=== PATIENT | male | born 2005 | race Caucasian/White ===

== ENCOUNTER 2025-06-10 01:36 | Emergency (ER) | payer BC, SELFPAY ==
[2025-06-10 01:36] VITALS: BMI 22.9
--- NOTE | 2025-06-10 01:43 | EDNOTE_ITS ---
ED Allergic Reaction RME/HPI General Chief complaint: Allergic Reaction Stated complaint: ALLERGIC REACTION Time Seen by Provider: 06/10/25 01:51 Arrival date/time: 06/10/25 01:36 RME / HPI RME / HPI narrative: This section includes all my notes and documentations, including HPI, PE, and ED course. Miguel Hudson MD HPI: 20 y/o male presents with severe red rash and itching s/p smoking marijuana x approximately 30 minutes ago. Denies any known allergies, new foods, or treatments. No throat tightness. No shortness of breath. No other complaints. ROS: All negative except as documented in HPI. Physical Exam: General: Alert and oriented. No acute distress when remaining still. Eyes: Conjunctivae and lids clear. ENT: No nasal congestion. Neck: Supple. Heart: RRR. Lungs: No respiratory distress. Good air movement. No rhonchi, wheezing, rales. Abdomen: Soft and nontender. Skin: Warm and dry. Diffuse and severe hives noted. Neuro: Alert and oriented X 3. At this point, diagnoses include: Allergic reaction. Treatment here included: IVF, Benadryl 50 mg, Pepcid 20 mg, Toradol 30 mg, SoluMedrol 125 mg. Significant improvement noted. Recommended outpatient care. Based on my best medical judgment, made decision no further evaluation or treatment indicated at this time. Patient understands and agrees to the discharge instructions customized and printed, see below. Discharge instructions from Dr. Hudson: 1. You were treated today for allergic reaction. 2. To help prevent the reaction going into your airways and your throat, take prednisone as prescribed. 3. And take Benadryl 50 mg every 6-8 hours today and tomorrow then as needed. 4. Increase oral fluid and maintain clear urine.? If dark or yellow, increase oral fluid.? This will help eliminate any allergens in your blood system. 5. Avoid unknown substances. 6. See your private doctor on 06/11/2025 for recheck. Ask for a referral to see an highway maintenance supervisor so you can be tested to know what to avoid in the future. 7. Seek immediate medical care with worsening, breathing difficulty, or with any concerns. 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 ED Exam Narrative Physical exam: Refer to HPI Course Quality Measures none Orders Category Date Time Status Saline [Insert IV] NOW Care 06/10/25 01:41 Active DiphenhydrAMINE INJ [Benadryl Inj] Med 06/10/25 01:41 Discontinued 50 mg IVP X1 STA Famotidine Inj [Pepcid Inj] Med 06/10/25 01:41 Discontinued 20 mg IVP X1 ONE Ketorolac Inj [Toradol Inj] Med 06/10/25 01:41 Discontinued 30 mg IVP X1 ONE MethylPREDNISolone.* [SoluMEDROL Inj] Med 06/10/25 01:41 Discontinued 125 mg IVP X1 ONE Sodium Chloride 0.9% 1000 ml [Ns] 1,000 ml Med 06/10/25 01:41 Discontinued IV 999 mls/hr Vital Signs Vital signs: Vital Signs Temperature 98 F 06/10/25 01:46 Pulse Rate 67 06/10/25 01:46 Respiratory Rate 18 06/10/25 01:46 Blood Pressure 138/79 H 06/10/25 01:46 Pulse Oximetry (%) 98 06/10/25 01:46 Oxygen Delivery Method Room Air 06/10/25 01:46 Allergic Reaction MDM Narrative MDM Narrative:: Scribe Attestation: Samantha Joyce am scribing for and in the presence of Dr. Hudson. Provider Notation: Although this document has been carefully reviewed, there may still be some phonetic and other typographical errors.? These errors are purely grammatical due to imperfections in the software program and should not be construed in any way to? compromise the substance of the patient's medical care during this visit. 20 y/o male presents with severe red rash and itching s/p smoking marijuana x approximately 30 minutes ago. Denies any known allergies, new foods, or treatments. No throat tightness. No shortness of breath. No other complaints. Patient data External records reviewed:: [facility] previous records (No prior ED records available for review.) Clinical information provided by:: patient Social determinants that could affect healthcare access:: substance use (Marijuana) Patient has the following chronic illnesses:: None reported How is presenting disease/condition affected by chronic disease/condition?: no chronic disease Evaluation data The following diagnostics were reviewed and interpreted by me:: other (specify) (N/A) Lab and/or radiology exams considered but not ordered:: None Interpretation Summary: N/A Medications / Prescriptions Medications or Prescriptions considered but not ordered:: None Medication administrations:: Medication Administration History Discontinued Medications Diphenhydramine HCl (Diphenhydramine Inj 50 Mg/Ml Vial) 50 mg IVP X1 STA Stop: 06/10/25 01:42 Last Admin: 06/10/25 01:58 Dose: 50 mg Documented By: CVL Famotidine (Famotidine Inj 10 Mg/Ml Vial 2 Ml) 20 mg IVP X1 ONE Stop: 06/10/25 01:42 Last Admin: 06/10/25 02:02 Dose: 20 mg Documented By: CVL Sodium Chloride (Ns) 1,000 mls @ 999 mls/hr IV .Q1H1M ONE Stop: 06/10/25 02:41 Last Infusion: 06/10/25 02:51 Dose: Infused Documented By: Admin: 06/10/25 02:00 Dose: 999 mls/hr Documented By: CVL Ketorolac Tromethamine (Ketorolac Inj 30 Mg/Ml Vial) 30 mg IVP X1 ONE Stop: 06/10/25 01:42 Last Admin: 06/10/25 02:05 Dose: 30 mg Documented By: CVL Methylprednisolone Sodium Succinate (Methylprednisolone Sod Succ 62.5 Mg/Ml 2ml Vial) 125 mg IVP X1 ONE Stop: 06/10/25 01:42 Last Admin: 06/10/25 02:02 Dose: 125 mg Documented By: CVL IVF, Benadryl 50 mg, Pepcid 20 mg, Toradol 30 mg, SoluMedrol 125 mg. Consultations Consultation(s) initiated? (list below): No Diagnosis Differential Diagnosis allergic reaction: anaphylaxis, allergic reaction, angioedema, contact dermatitis, adverse reaction to drug, viral enanthem and urticaria Most likely diagnosis given after review of the tests above:: Allergic reaction Admission Indicated Admission indicated?: not indicated Explain why admission is indicated or not indicated:: With significant improvement and no condition needing emergent intervention, there was no indication for admission. Admission Request Was there a request for admission?: No Disposition Plan Disposition Plan: Discharge Discharge Attestation Discharge Attestation: The patient and all family members were given an opportunity to ask questions and understood the discharge instructions. Discharge instructions specifically effects, indications for sooner follow up or return to the emergency department, and the expected course of current diagnosis. Patient condition: Stable Discharge Plan Plan Patient Disposition: HOME (Self Care) Prescriptions/Referrals Prescriptions/Med Rec: New prednisone 20 mg tablet 20 mg PO BID 2 Days Qty: 4 0RF Taper: Prednisone Taper 20 mg DAILY for 2 Days and 0 Hour 10 mg DAILY for 2 Days and 0 Hour 5 mg DAILY for 7 Days and 0 Hour Problem List Clinical Impression: Allergic reaction Patient/Caregiver Discharge Instructions Discharge Activity: activity as tolerated Education Materials: ED Allerg React Other General Ch Additional Instructions: Discharge instructions from Dr. Hudson: 1. You were treated today for allergic reaction. 2. To help prevent the reaction going into your airways and your throat, take prednisone as prescribed. 3. And take Benadryl 50 mg every 6-8 hours today and tomorrow then as needed. 4. Increase oral fluid and maintain clear urine.? If dark or yellow, increase oral fluid.? This will help eliminate any allergens in your blood system. 5. Avoid unknown substances. 6. See your private doctor on 06/11/2025 for recheck. Ask for a referral to see an highway maintenance supervisor so you can be tested to know what to avoid in the future. 7. Seek immediate medical care with worsening, breathing difficulty, or with any concerns. Print Language: Syriac Stand Alone Forms: Cookie Award Info., Patient Portal Info Letter
[2025-06-10 01:46] VITALS: BP 138/79; PULSE 67; RESP 18; TEMP 36.6; O2SAT 98
[2025-06-10] MEDS: SODIUM CHLORIDE 0.9% 1000 ML 1,000 ML 999 ML IV (02:00)
[2025-06-10] MEDS: FAMOTIDINE INJ 10 MG/ML VIAL 2 ML 20 MG IVP (02:02)
[2025-06-10] MEDS: MethylPREDNISolone SOD SUCC 62.5 MG/ML 2ML VIAL 125 MG IVP (02:02)
[2025-06-10] MEDS: KETOROLAC INJ 30 MG/ML VIAL IVP (02:05)
[2025-06-10 02:52] VITALS: BP 146/86; PULSE 63; RESP 15; O2SAT 97
== END 2025-06-10 02:52 | disposition home or self-care (01) ==
PROVIDERS: Emergency Provider Emergency Medicine
DX: L50.9 Urticaria, unspecified (principal); T40.715A Adverse effect of cannabis, initial encounter
CPT/HCPCS: 96361; 96374; 96375; 99283; J1200; J1885; J2919; J3490; J7030